=== PATIENT | female | born 1950 | race African-American/Black ===

== ENCOUNTER 2018-09-16 09:10 | Emergency (ER) | payer MEDICARE, MEDICAID ==
[~2018-09-16] VITALS: Ht 170.2 cm; Wt 83.9 kg
[~2018-09-16 09:10] MED LIST: AMITRIPTYLINE H10 MG ORAL; LANSOPRAZOLE30 MG ORAL; METOPROLOL SUCC50 MG ORAL; TRAMADOL HCL50 MG ORAL
[2018-09-16 09:13] VITALS: BP 141/67
--- NOTE | 2018-09-16 09:20 | NUR ---
ED Nurse Note: Patient walked into ED from home due to generalized aching and "feeling sick" all over the body. patient has been Dr. Michel's patient for 20 years, and patient has been taking tramadol for years for pain on her bilateral knee arthritis. Per patient Dr. Michel is retired and the new doctor stopped prescribing tramadol for her. per patient, it has been 2 days off the medication. patient reports having watery/puffy eyes, "feeling sick" and her arthritis pain is not managed. patient is alert and awake x 4 , ambulatory with steady gait.
[2018-09-16] MEDS ORDERED: TRAMADOL HCL50 MG ORAL (09:49)
--- NOTE | 2018-09-16 09:58 | Emergency Room Report ---
History of Present Illness General Chief Complaint: Pain Source: Patient Present Illness HPI Patient presents with reports that she has had arthralgia knee pain and elbow pain for over 15-20 years Patient reports that she has been seen at her primary doctor's office during that period was initially taken off at different medication and has been on Ultram for multiple years With her last visit to the office she was told by the physician that she was no longer providing this type of medication Patient has now been feeling increased discomfort in her joints Also feels that she might be having withdrawal type symptoms with feeling uneasy Patient reports that the primary physician had provided her a referral prescription for pain management however she is not able to see pain management until an appointment is possible which can be 3-4 weeks at the minimum Otherwise denies any abdominal pain and eyes any hallucinations denies any vomiting or diarrhea denies any chest pain, Allergies: Coded Allergies: PENICILLINS (Verified Allergy, Unknown, 08/18/14) Patient History Past Medical History: see triage record Pertinent Family History: none Now: No Reviewed Nursing Documentation: PMH: Agreed; PSxH: Agreed Nursing Documentation-PMH Past Medical History: No History, Except For Hx Cardiac Problems: Yes Hx Hypertension: Yes Hx Cancer: No Hx Gastrointestinal Problems: Yes Hx Neurological Problems: No Review of Systems All Other Systems: negative except mentioned in HPI Physical Exam Vital Signs Date Time Temp Pulse Resp B/P (MAP) Pulse Ox O2 Delivery O2 Flow Rate FiO2 09/16/18 09:13 98.6 75 20 141/67 98 Room Air Sp02 EP Interpretation: reviewed, normal General Appearance: well appearing, no apparent distress Head: normocephalic, atraumatic Eyes: bilateral eye PERRL, bilateral eye EOMI ENT: hearing grossly normal, normal pharynx, TMs + canals normal, uvula midline Neck: full range of motion, supple, no meningismus, no bony tend Respiratory: lungs clear, normal breath sounds, no rhonchi, no respiratory distress, no retraction, no accessory muscle use Cardiovascular #1: normal peripheral pulses, regular rate, rhythm, no edema, no gallop, no JVD, no murmur Gastrointestinal: normal bowel sounds, non tender, soft, no mass, no organomegaly, non-distended, no guarding, no hernia, no pulsatile mass, no rebound Genitourinary: no CVA tenderness Musculoskeletal: normal inspection Neurologic: oriented x3, responsive, business development coordinator III-XII nml as tested, motor strength/ tone normal, sensory intact Psychiatric: mood/affect normal Skin: normal color, no rash, warm/dry, palpation normal Lymphatic: normal inspection, no adenopathy Medical Decision Making Diagnostic Impression: Primary Impression: arthralgia ER Course Review of the patient's CURES does reveal consistent prescription on a monthly basis by her primary physician It is unclear given the abrupt stopping of this medication Patient's provider is being contacted I spoke to Dr. Tami kim who will be contacting the office to have the case discussed with the patient personally Patient provided 10 pills for bridging And patient will follow closely Last Vital Signs Date Time Temp Pulse Resp B/P (MAP) Pulse Ox O2 Delivery O2 Flow Rate FiO2 09/16/18 09:13 98.6 75 20 141/67 98 Room Air Status: unchanged Disposition: HOME, SELF-CARE Condition: Stable Scripts Tramadol Hcl* (ULTRAM*) 50 Mg Tablet 50 MG ORAL Q12HR PRN for For Pain, #10 TAB 0 Refills Prov: Bailey Curry DO 09/16/18 Referrals: Barry Mccann MD (PCP) Patient Instructions: Joint Pain Additional Instructions: Patient is provided with the discharge instructions notified to follow up with primary doctor in the next 2-3 days otherwise return to the er with any worsening symptoms. Please note that this report is being documented using [employer] technology. This can lead to erroneous entry secondary to incorrect interpretation by the dictating instrument. Bailey Curry DO Sep 16, 2018 09:58
[2018-09-16 10:08] VITALS: BP 141/67
--- NOTE | 2018-09-16 10:08 | NUR ---
ER DISCHARGE NOTE: Patient is cleared to be discharged per ERMD, pt is aox4, on room air, with stable vital signs. pt was given dc and prescription instructions, pt was able to verbalize understanding, pt id band removed without complications. pt is able to ambulate with steady gait. pt took all belongings.
== END 2018-09-16 10:09 | disposition home or self-care (01) ==
LOC: EMR 09:37
DX: M25.569 Pain in unspecified knee (principal); M25.529 Pain in unspecified elbow; Z88.0 Allergy status to penicillin; I10 Essential (primary) hypertension
CPT/HCPCS: 99282